=== PATIENT | female | born 1990 | race Caucasian/White ===

== ENCOUNTER 2023-08-16 12:50 | Emergency (ER) | payer OTHER, SELFPAY ==
[2023-08-16 13:00] VITALS: BP 158/98; PULSE 104; RESP 20; TEMP 36.6; O2SAT 100; BMI 17.9
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
== END 2023-08-16 14:20 | disposition home or self-care (01) ==
PROVIDERS: Emergency Provider Emergency Medicine; Family Provider Family Medicine
DX: S16.1XXA Strain of muscle, fascia and tendon at neck level, initial encounter (principal); V49.49XA Driver injured in collision with other motor vehicles in traffic accident, initial encounter
CPT/HCPCS: 71046; 72040; 99284